=== PATIENT | male | born 1945 | race Caucasian/White ===

== ENCOUNTER 2018-03-24 08:57 | Observation (INO) ==
--- NOTE | 2018-03-24 09:38 | Emergency Department Note ---
Disposition Clinical Impression: Dyspnea on exertion, Generalized weakness, Myalgia, Sore throat Disposition: Admitted As Inpatient Condition: Good Time of Disposition: 14:35 General Adult HPI - General Chief complaint: ED Shortness of Breath/Dyspnea Stated complaint: "weak,dizzy" Time Seen by Provider: 03/24/18 09:15 Source: patient Limitations: no limitations Nursing Notes Reviewed: Yes Vital Signs Reviewed: Yes - History of Present Illness HPI Narrative: 72 year old otherwise healthy male woke up Thursday feeling achey and tired and then woke up this morning feeling much worse so decided to be checked out. He states that he has a headache between his eyes, some subjective fevers, chills, a midline sore throat with some difficulty swallowing, some shortness of breath with exertion, muscle aches that feel flu-like in nature, some nausea without vomiting or abdominal pain, and generally feels tired. He did wipe a tick off him that had not embedded itself a few days ago, but does not think the tick bit him and cannot remember removing any other ticks or seeing evidence of any other bites. He completed a course of doxycycline on Thursday which he had been taking for previously diagnosed epididymitis. Active medical problems include a current ileostoy placed in 1968 for ulcerative colitis and prostate cancer which is being watched but not treated. 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 Onset (ago): day(s) Location: head, neck, upper extremity, lower extremity Radiation: non-radiation Pain Severity: moderate Pain Scale: 4 Quality: aching Consistency: constant Improves with: immobilization Worsens with: movement Associated symptoms: Reports: shortness of breath Treatments Prior to Arrival: none - Related Data Home Medications Medication Instructions Recorded Confirmed Ranitidine HCl [Acid Webbing Weaver] 150 mg PO BID 03/24/18 03/24/18 Allergies Allergy/AdvReac Type Severity Reaction Status Date / Time No Known Allergies Allergy Verified 03/24/18 13:10 Constitutional: Reports: fever, chills, weakness Eyes: Denies: eye pain, eye discharge, vision change ENT ED: Reports: throat pain. Denies: congestion Cardiovascular: Reports: dyspnea on exertion. Denies: chest pain Respiratory: Reports: cough Gastrointestinal: Reports: nausea. Denies: vomiting Genitourinary: Denies: urgency, dysuria Musculoskeletal: Reports: myalgia Integumentary: Denies: rash, lesions Neurological: Reports: headache, weakness Psychiatric: Denies: anxiety, depression, suicidal thoughts, homicidal thoughts , auditory hallucinations, visual hallucinations Past Medical History - Past Medical History Medical history: Reports: cancer, other Psychiatric history: Reports: no psych history - Social History Smoking Status: Never smoker Smokeless Tobacco Status: No Alcohol use: Reports: none Drug use: Reports: none Physical Exam - General Limitations: no limitations - Head Head exam: atraumatic, normocephalic - Eye Eye exam: Present: normal appearance - ENT ENT exam: mucous membranes moist (mild erythema and evidence of post nasal drip) - Neck Neck exam: Present: normal inspection. Absent: lymphadenopathy - Chest Chest inspection: Present: normal inspection, symmetric chest wall rise. Absent : tenderness, rash - Respiratory Respiratory exam: Present: other (mild inspiratory crackles in the bases bilaterally) - Cardiovascular Cardiovascular exam: Present: regular rate, normal rhythm - Abdominal Exam Abdominal exam: Present: soft, Non-Tender - Extremities Exam Extremities exam: Present: normal inspection - Expanded Upper Extremity Exam Vascular exam: Normal: radial pulse (2+ bilaterally) - Neurological Exam Neurological exam: Present: alert, oriented X3 - Expanded Neurological Exam Motor strength - LUE: 5/5 Motor strength - RUE: 5/5 Motor strength - LLE: 5/5 Motor strength - RLE: 5/5 - Psychiatric Psychiatric exam: Present: normal affect, normal mood - Skin Skin exam: Present: warm, dry, intact Course - Reevaluation(s) Reevaluation #1: Spoke with patient and told him we plan to do a cardiac workup. He agrees with the plan and does not want anything for pain or nausea at this time. Time: 10:14 Reevaluation #2: Spoke with the patient and told him that in light of his negative workup in the department, we wanted to admit him for further studies and workup to determine the cause of his symptoms. Patient was in agreement with the plan and I addressed all of his concerns with an opportunity for further questions. Time: 12:00 - Consultations Consultation #1: Spoke with hospitalist Dr. Chapa who agreed to admit the patient to medicine. 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 2V CXR failed to show any pneumonia or atelectasis, lab work failed to show elevated troponin or disordered electrolytes, and while EKG showed a sinus arrythmia, it did not show any ST elevation or depression. Additionally, a CK ordered for myalgia was normal. Considering the previously healthy history of the patient, the findings and normal workup in the department is concerning for an underlying cardiac abnormality that would require a more extensive workup as an inpatient. The patient will be admitted to the hospitalist for further studies. - Differential Diagnosis dyspnea on exertion - Medical Records Medical records reviewed: Yes I reviewed the patient's medical records. - Lab Data Lab results reviewed: Yes I reviewed the patient's lab results. Result diagrams: 03/24/18 10:31 03/24/18 10:31 Lab Results 03/24/18 03/24/18 03/24/18 Range/Units 10:31 10:31 10:31 WBC 9.2 (4.3-11.1) K/mcL RBC 4.77 (4.19-5.50) M/mcL Hgb 14.8 (12.9-16.9) g/dL Hct 42.4 (37.5-50.1) % MCV 88.9 (83.0-100.0) fL MCH 31.0 (28.0-33.3) pg MCHC 34.9 (31.6-35.5) g/dL RDW 12.9 (11.5-14.5) % Plt Count 219 (140-400) K/mcL MPV 10.2 (9.4-12.4) fL Immature Gran % 0.5 (0-4) % Seg Neutrophils % 81.5 % Lymphocytes % 7.1 % Monocytes % 9.4 % Eosinophils % 1.1 % Basophils % 0.4 % Neutrophils # 7.5 (1.6-8.9) K/mcL Lymphocytes # 0.7 (0.6-4.6) K/mcL Monocytes # 0.9 (0.0-1.3) K/mcL Eosinophils # 0.1 (0.0-0.6) K/mcL Basophils # 0.0 (0.0-0.2) K/mcL PT 12.3 H (9.4-12.1) Seconds INR 1.1 APTT 29.3 (26.0-36.0) Seconds Sodium 135 L (136-145) mEq/L Potassium 4.5 (3.5-5.1) mEq/L Chloride 104 (98-107) mEq/L Carbon Dioxide 25 (23-29) mEq/L BUN 11 (8-23) mg/dL Creatinine 1.04 (0.70-1.30) mg/dL Est GFR ( Amer) > 60 (> 60) Est GFR (Non-Af Amer) > 60 (> 60) BUN/Creatinine Ratio 11 (6-26) Glucose 114 H (70-105) mg/dL Calculated Osmolality 280 (280-300) Calcium 9.5 (8.6-10.3) mg/dL Total Bilirubin 0.7 (0.3-1.0) mg/dL Direct Bilirubin 0.2 (0.0-0.2) mg/dL Indirect Bilirubin 0.5 (0.0-1.2) mg/dL AST 23 (13-39) Units/L ALT 25 (7-52) Units/L Alkaline Phosphatase 119 H (34-104) Units/L Creatine Kinase 52 (30-223) Units/L Troponin I < 0.03 (< 0.04) ng/mL Serum Total Protein 6.7 (6.4-8.9) g/dL Albumin 4.2 (3.5-5.7) g/dL Globulin 2.5 (2.4-3.5) g/dL Albumin/Globulin Ratio 1.7 (1.1-2.2) Lipase 45 (11-82) Units/L Urine Color (Yellow) Urine Clarity (Clear) Urine pH (5.0-8.0) pH Units Ur Specific [place] (1.010-1.025) Urine Protein (Neg-Trace) mg/dL Urine Glucose (UA) (Normal) mg/dL Urine Ketones (Negative) mg/dL Urine Blood (Negative) Urine Nitrite (Negative) Urine Bilirubin (Negative) Urine Urobilinogen (Normal) mg/dL Ur Leukocyte Esterase (Negative) Urine Microscopic RBC (0-3) per hpf Urine Microscopic WBC (0-3) per hpf Ur Squamous Epith Cells (None-Few) per lpf Urine Bacteria (None-Few) per hpf Hyaline Casts (None-Few) per lpf Ur Culture Indicated? (NO) 03/24/18 Range/Units 12:30 WBC (4.3-11.1) K/mcL RBC (4.19-5.50) M/mcL Hgb (12.9-16.9) g/dL Hct (37.5-50.1) % MCV (83.0-100.0) fL MCH (28.0-33.3) pg MCHC (31.6-35.5) g/dL RDW (11.5-14.5) % Plt Count (140-400) K/mcL MPV (9.4-12.4) fL Immature Gran % (0-4) % Seg Neutrophils % % Lymphocytes % % Monocytes % % Eosinophils % % Basophils % % Neutrophils # (1.6-8.9) K/mcL Lymphocytes # (0.6-4.6) K/mcL Monocytes # (0.0-1.3) K/mcL Eosinophils # (0.0-0.6) K/mcL Basophils # (0.0-0.2) K/mcL PT (9.4-12.1) Seconds INR APTT (26.0-36.0) Seconds Sodium (136-145) mEq/L Potassium (3.5-5.1) mEq/L Chloride (98-107) mEq/L Carbon Dioxide (23-29) mEq/L BUN (8-23) mg/dL Creatinine (0.70-1.30) mg/dL Est GFR ( Amer) (> 60) Est GFR (Non-Af Amer) (> 60) BUN/Creatinine Ratio (6-26) Glucose (70-105) mg/dL Calculated Osmolality (280-300) Calcium (8.6-10.3) mg/dL Total Bilirubin (0.3-1.0) mg/dL Direct Bilirubin (0.0-0.2) mg/dL Indirect Bilirubin (0.0-1.2) mg/dL AST (13-39) Units/L ALT (7-52) Units/L Alkaline Phosphatase (34-104) Units/L Creatine Kinase (30-223) Units/L Troponin I (< 0.04) ng/mL Serum Total Protein (6.4-8.9) g/dL Albumin (3.5-5.7) g/dL Globulin (2.4-3.5) g/dL Albumin/Globulin Ratio (1.1-2.2) Lipase (11-82) Units/L Urine Color Yellow (Yellow) Urine Clarity Clear (Clear) Urine pH 6.0 (5.0-8.0) pH Units Ur Specific [place] 1.021 (1.010-1.025) Urine Protein 30 H (Neg-Trace) mg/dL Urine Glucose (UA) Normal (Normal) mg/dL Urine Ketones Negative (Negative) mg/dL Urine Blood Negative (Negative) Urine Nitrite Negative (Negative) Urine Bilirubin Negative (Negative) Urine Urobilinogen Normal (Normal) mg/dL Ur Leukocyte Esterase Negative (Negative) Urine Microscopic RBC 3-5 H (0-3) per hpf Urine Microscopic WBC 3-5 H (0-3) per hpf Ur Squamous Epith Cells Many H (None-Few) per lpf Urine Bacteria None Seen (None-Few) per hpf Hyaline Casts None Seen (None-Few) per lpf Ur Culture Indicated? NO (NO) - Radiology Data Radiology results reviewed: Yes I reviewed the patient's radiology results. Chest X-Ray 03/24/18 10:04 IMPRESSION: No acute cardiopulmonary process. D/ / 03/24/2018 10:33:53 Paulette So MD / john Interpreting Provider: Paulette So MD - EKG Data EKG #1 EKG attestation: Yes I reviewed and interpreted this EKG. EKG results narrative: Underlying sinus rhythm with sinus arrythmia. Heart rate 85, p waves present with all QRS complexes. No ST elevation or depression. Attestation Statement - Attestation Attestation: I examined this patient and my medical decision-making was reviewed with the Resident Physician, Dr. Lizama. I agree with the documented findings, disposition and treatment plan as described except to the extent set forth below. Patient is a pleasant 72-year-old white male with a remote history of prostate CA who presents to the emergency department today with complaints of a 24-hour history of gradually worsening generalized weakness, diffuse myalgias, subjective fevers and chills, mild sore throat and exertional dyspnea. Patient denies any cough, no sinus pain or pressure, no headaches, no visual changes or photophobia. 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 Patient states be attempts a few steps he becomes very dyspneic but denies any chest pain or pressure sensation. Patient states by today he felt unsteady with even standing and bearing weight, and felt lightheaded and near syncopal although denies any syncopal episodes at home. No history of falls or trauma. I agree with patient's physical exam findings as documented. Vital signs are stable on arrival patient's in no acute distress, patient has a clear voice and managing secretions appropriately. Patient's EKG shows a normal sinus rhythm with occasional sinus arrhythmia no acute ST or T-wave changes are appreciated. Patient's chest x-ray is within normal limits. Patient's lab evaluation is within normal limits. Patient's findings concerning for exertional dyspnea to rule out ACS. Initial enzymes are negative. There are no acute EKG findings. Also symptoms sound concerning for viral illness with myalgias, chest x-ray is clear, urinalysis is negative for infection. At this time patient has remained hemodynamically stable and in no acute distress throughout his ED course rapid strep is negative. Patient will be admitted for further evaluation of above concerns case discussed with hospitalist who accepted patient for further evaluation.
[2018-03-24] MEDS ORDERED: Aspirin 81 MG TAB.CHEW PO ONE (09:55)
[2018-03-24 11:02] LABS: Basophils % 0.4 %; Eosinophils # 0.1 K/mcL (0.0-0.6); Eosinophils % 1.1 %; Hematocrit 42.4 % (37.5-50.1); Hemoglobin 14.8 g/dL (12.9-16.9); Immature Granulocytes % 0.5 % (0-4); Lymphocytes # 0.7 K/mcL (0.6-4.6); Lymphocytes % 7.1 %; Mean Corpuscular HGB Conc 34.9 g/dL (31.6-35.5); Mean Corpuscular Volume 88.9 fL (83.0-100.0); Mean Platelet Volume 10.2 fL (9.4-12.4); Monocytes # 0.9 K/mcL (0.0-1.3); Monocytes % 9.4 %; Neutrophils # 7.5 K/mcL (1.6-8.9); Platelet Count 219 K/mcL (140-400); Red Blood Count 4.77 M/mcL (4.19-5.50); Red Cell Distribution Width 12.9 % (11.5-14.5); Segmented Neutrophils % 81.5 %
[2018-03-24 11:14] LABS: Alanine Aminotransferase 25 Units/L (7-52); Albumin 4.2 g/dL (3.5-5.7); Albumin/Globulin Ratio 1.7 (1.1-2.2); Alkaline Phosphatase 119 Units/L (34-104); Aspartate Amino Transferase 23 Units/L (13-39); BUN/Creatinine Ratio 11 (6-26); Bilirubin,Direct 0.2 mg/dL (0.0-0.2); Bilirubin,Indirect 0.5 mg/dL (0.0-1.2); Bilirubin,Total 0.7 mg/dL (0.3-1.0); Blood Urea Nitrogen 11 mg/dL (8-23); Calcium 9.5 mg/dL (8.6-10.3); Carbon Dioxide 25 mEq/L (23-29); Chloride 104 mEq/L (98-107); Creatine Kinase 52 Units/L (30-223); Globulin 2.5 g/dL (2.4-3.5); Glucose 114 mg/dL (70-105); Lipase 45 Units/L (11-82); Osmolality,Calculated 280 (280-300); Potassium 4.5 mEq/L (3.5-5.1); Sodium 135 mEq/L (136-145); Total Protein 6.7 g/dL (6.4-8.9); Troponin I < 0.03 ng/mL (< 0.04); eGFR For African Americans > 60 (> 60); eGFR For Non-African Americans > 60 (> 60)
[2018-03-24 11:29] LABS: INR 1.1; Prothrombin Time 12.3 Seconds (9.4-12.1)
[2018-03-24 11:32] LABS: Activated Partial Thrombo Time 29.3 Seconds (26.0-36.0)
[2018-03-24 12:44] LABS: Bilirubin,Urine Negative (Negative); Blood,Urine Negative (Negative); Clarity,Urine Clear (Clear); Color,Urine Yellow (Yellow); Glucose,Urine (UA) Normal (Normal); Ketones,Urine Negative (Negative); Leukocyte Esterase,Urine Negative (Negative); Nitrite,Urine Negative (Negative); Protein,Urine 30 mg/dL (Neg-Trace); Specific Gravity,Urine 1.021 (1.010-1.025); Urobilinogen,Urine Normal (Normal)
[2018-03-24 12:46] LABS: Bacteria,Urine None Seen per hpf (None-Few); Hyaline Casts,Urine None Seen per lpf (None-Few); Squamous Epithelial Cell,Urine Many per lpf (None-Few)
[2018-03-24] MEDS ORDERED: Naloxone 0.4 MG/ML INJ IVP PRN (16:18)
--- NOTE | 2018-03-24 16:18 | Internal Med History&Physical ---
Date of Encounter: 03/24/18 Time of Encounter: 16:17 Internal Medicine - H&P: HPI Chief complaint: flulike symptoms History of present illness: 72 year old otherwise healthy male was past medical history cough prostate cancer and a remote history of ulcerative colitis in 1968 who presented to the ER with subjective fever chills and sore throat for some difficulty swallowing and dyspnea on exertion as very as flulike symptoms, he also reports being nauseated with no vomiting or abdominal pain. 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 The patient has history of epididymitis, that he has been treated for with doxycycline and he just completed that course of antibiotic on Thursday. the patient reported vague cardiac history including a known finding on EKG that was evaluated by rotary filter operator at [facility]. his workup in the ER was negative however the ER staff was concerned that his dyspnea and exertion likely due to cardiac component and requested the patient will be admitted for further evaluation and management. Past Med Surg Social Fam HX - Past Medical History Medical history: cancer, other Additional medical history: Prostate cancer Psychiatric history: no psych history - Past Surgical History Additional surgical history: Ileostomy - Social History Smoking Status: Never smoker Smokeless Tobacco Status: No Alcohol use: none Drug use: none Internal Medicine - H&P: Meds Ranitidine HCl [Acid Carrier Washer] 150 mg PO BID 03/24/18 [History] 3 Allergy/AdvReac Type Severity Reaction Status Date / Time No Known Allergies Allergy Verified 03/24/18 13:10 All Systems PM: A 10-system review of systems was performed and is negative for pertinent findings except as documented above in the HPI. - Constitutional Constitutional: chills, fatigue, fever(s), no night sweats - Cardiovascular Cardiovascular ROS IM: dyspnea on exertion, no chest pain, no diaphoresis, no dyspnea, no lightheadedness, no palpitations, no syncope - Respiratory Respiratory: dyspnea, no cough, no wheezing, no excessive phlegm production - Gastrointestinal Gastrointestinal: no abdominal pain, no diarrhea, no hematemesis, no hematochezia, no melena, no nausea, no vomiting - Neurological Neurological ROS: no confusion, no convulsions, no focal weakness, no numbness, no tingling, no tremor(s) - Constitutional Vitals: Temp Pulse Resp BP Pulse Ox 98.0 F 67 16 148/82 97 03/24/18 15:09 03/24/18 15:09 03/24/18 15:09 03/24/18 15:09 03/24/18 15:09 General appearance: Present: A&O X 3 - Neck Neck exam general surgery: Present: supple, trachea midline. Absent: lymphadenopathy - Respiratory Respiratory exam: Present: CTAB. Absent: accessory muscle use, rales, rhonchi, wheezes - Cardiovascular Cardiovascular exam: Present: RRR, +S1, +S2. Absent: diastolic murmur, gallop, rubs, systolic murmur - GI/Abdominal GI/Abdominal exam: Present: normal bowel sounds, soft, no peritoneal signs. Absent: distended, tenderness Internal Med - H&P Results - Labs CBC & Chem 7: 03/25/18 04:57 03/24/18 10:31 - Assessment and plan (1) Dyspnea on exertion Current Visit: Yes Status: Acute Assessment and plan: A concern that this might be an equivalent of cardiac component, rule out coronary artery disease. - cardiac enzymes x 2 q 8 hr - EKG now and in AM - ASA - O2 by NC to keep SpO2 greater than 92% - UA - CBCD, BMP in AM - Fasting lipids - Tylenol 650 mg PO q 4-6 hr PRN headache - Heparin 5000 U SQ BID - 2D Echo (2) Generalized weakness Current Visit: Yes Status: Acute Assessment and plan: the patient is complaining of generalized weakness and fever like symptoms, might be secondary to viral illness, so for all workup is negative. (3) Epididymitis Current Visit: Yes Status: Acute Assessment and plan: the patient was treated with doxycycline and just completed this course of antibiotic on Thursday. He denies any further symptoms. (4) Hyponatremia Current Visit: Yes Status: Acute Assessment and plan: mild hypovolemic hyponatremia most likely secondary to decreased pO on her intake, her starting patient on IV hydration with isotonic fluid. (5) DVT prophylaxis Current Visit: Yes Status: Acute Assessment and plan: heparin 5000 BID - Time Spent With Patient Total time spent is greater than 50% in coordination of care (as documented) at patient's floor/unit and/or counseling patient:
[2018-03-24] MEDS ORDERED: *HR* OxyCODONE Immed Rel 5 MG TABLET PO PRN (16:23)
[2018-03-24] MEDS ORDERED: traMADol 50 MG TABLET PO PRN (16:23)
[2018-03-24] MEDS ORDERED: Acetaminophen 325 MG TABLET PO PRN (16:23)
[2018-03-25 06:04] LABS: Hematocrit 41.6 % (37.5-50.1); Mean Corpuscular HGB Conc 33.7 g/dL (31.6-35.5); Mean Corpuscular Hemoglobin 30.2 pg (28.0-33.3); Mean Corpuscular Volume 89.8 fL (83.0-100.0); Mean Platelet Volume 10.3 fL (9.4-12.4); Platelet Count 216 K/mcL (140-400); Red Blood Count 4.63 M/mcL (4.19-5.50); Red Cell Distribution Width 12.9 % (11.5-14.5)
[2018-03-25 06:09] LABS: INR 1.1; Prothrombin Time 12.5 Seconds (9.4-12.1)
[2018-03-25 06:11] LABS: Activated Partial Thrombo Time 33.2 Seconds (26.0-36.0)
[2018-03-25 06:31] LABS: Alanine Aminotransferase 26 Units/L (7-52); Albumin 3.7 g/dL (3.5-5.7); Albumin/Globulin Ratio 1.5 (1.1-2.2); Alkaline Phosphatase 109 Units/L (34-104); Aspartate Amino Transferase 23 Units/L (13-39); BUN/Creatinine Ratio 14 (6-26); Bilirubin,Total 0.6 mg/dL (0.3-1.0); Blood Urea Nitrogen 13 mg/dL (8-23); Calcium 9.1 mg/dL (8.6-10.3); Carbon Dioxide 26 mEq/L (23-29); Chloride 104 mEq/L (98-107); Chol/HDL Ratio 4.8 (0-4.9); Cholesterol 143 mg/dL (< 200); Globulin 2.5 g/dL (2.4-3.5); Glucose 118 mg/dL (70-105); HDL Cholesterol 30 mg/dL (40-59); LDL Cholesterol,Calculated 83 mg/dL (0-99); Magnesium 1.9 mg/dL (1.6-2.6); Osmolality,Calculated 283 (280-300); Phosphorous 3.4 mg/dL (2.7-4.5); Potassium 4.3 mEq/L (3.5-5.1); Sodium 136 mEq/L (136-145); Total Protein 6.2 g/dL (6.4-8.9); Triglycerides 151 mg/dL (< 150); eGFR For African Americans > 60 (> 60); eGFR For Non-African Americans > 60 (> 60)
[2018-03-25] MEDS ORDERED: Famotidine 20 MG TABLET PO SCH (07:30)
--- NOTE | 2018-03-25 08:16 | Electrocardiograph Report ---
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
--- NOTE | 2018-03-25 09:43 | Internal Med Progress Note ---
<Aayush Garcia S - Last Filed: 03/25/18 13:47> Date of Encounter: 03/25/18 Time of Encounter: 08:45 - Assessment and plan (1) Generalized weakness Current Visit: Yes Status: Acute Assessment and plan: Pt has complaints of proximal muscle weakness, specifically in the shoulders and hip girdle He states it is hard to lift arms over head or flex hips So far all workup is negative. GAS negative, CXR negative, troponins 0.3, CK 52 All electrolytes are within nomral limits Hemoglobin stable. Today it is 14. (2) Dyspnea on exertion Current Visit: Yes Status: Acute Assessment and plan: Ruled out cardiac origin -TG 151 Troponin 0.03 CK 52 CXR showed no acute cardiopulmonary process Electrolytes normal O2 sat today is 96 on RA ECHO pending Heparin SQ 5000U (3) DVT prophylaxis Current Visit: Yes Status: Acute Assessment and plan: heparin 5000 SQ (4) Epididymitis Current Visit: No Status: Resolved Assessment and plan: Resolved Finished doxycycline on thursday (5) Dysphagia Current Visit: Yes Status: Acute Assessment and plan: Pt may have pill induced esophagitis from doxycylcline Will hold pt until tomorrow, plan for discharge tomorrow, incase dysphagia progresses Put pt on PO omeprazole Qualifiers: Dysphagia type: esophageal phase Qualified Code(s): R13.10 - Dysphagia, unspecified - Time Spent With Patient Total time spent is greater than 50% in coordination of care (as documented) at patient's floor/unit and/or counseling patient: less than 15 minutes - Subjective Interval history: Pt is seen at bedside. He came to the hospital Thursday after experiencing fever, chills, sore throat, and difficulty swallowing /dysphagia for two days. He Has c/o dyspnea on exertion. He said he had flu like symptoms , nausea associated. He said it was like he had a lump in the back of his throat and had trouble swallowing both solids/liquids. He has a hx of prostate cancer, ulcerative colitis and has had colostomy bag for 50yrs, he also had epidydimitis recently and was on doxycycline. 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 He says the tic wasn't engorged and was attached for <36hrs -Doxycylcine may be causing pill induced esophgaitis . Will keep patient one more day to make sure he can eat He has c/o proximal muscle weakness, lifting arms overhead, lifting hips. There is weakness in the hip girdle area and shoulders. Fluids - no fluids currently Electrolytes - all are within normal limits Nutrition - pt is tolerating regular diet GI prophylaxis - PO omeprazole DVT prophylaxis - heparin SQ - Constitutional Vitals: Temp Pulse Resp BP Pulse Ox 98.2 F 83 16 125/68 96 03/25/18 07:28 03/25/18 07:28 03/25/18 07:28 03/25/18 07:28 03/25/18 07:28 General appearance: Present: A&O X 3 - Head Head exam: Present: atraumatic, normal inspection - Neck Neck exam general surgery: Present: supple - Respiratory Respiratory exam: Present: CTAB - Cardiovascular Cardiovascular exam: Present: RRR, +S1, +S2 - GI/Abdominal GI/Abdominal exam: Present: normal bowel sounds, no peritoneal signs. Absent: tenderness - Neurological Exam Neurological exam: Present: alert, CN II-XII intact, oriented X3, no focal deficits. Absent: strengths equal and symetr throughout, facial droop, speech deficit - Skin Skin exam: Present: intact Internal Medicine: Result - Labs CBC & Chem 7: 03/25/18 04:57 03/25/18 04:57 Labs: Short CBC 03/25/18 Range/Units 04:57 WBC 7.9 (4.3-11.1) K/mcL Hgb 14.0 (12.9-16.9) g/dL Hct 41.6 (37.5-50.1) % Plt Count 216 (140-400) K/mcL BMP 03/25/18 04:57 Sodium 136 Potassium 4.3 Chloride 104 Carbon Dioxide 26 BUN 13 Creatinine 0.94 Glucose 118 H Calcium 9.1 Cardiac Enzymes 03/24/18 03/24/18 03/25/18 Range/Units 17:06 22:51 04:57 Troponin I < 0.03 < 0.03 < 0.03 (< 0.04) ng/mL Liver Function 03/25/18 Range/Units 04:57 Total Bilirubin 0.6 (0.3-1.0) mg/dL AST 23 (13-39) Units/L ALT 26 (7-52) Units/L Alkaline Phosphatase 109 H (34-104) Units/L Albumin 3.7 (3.5-5.7) g/dL - ABG Interpretation ABG results: PT/INR, D-dimer PT 12.5 Seconds (9.4-12.1) H 03/25/18 04:57 Consult Discharge Plan - Plan Referrals: Jimi Mccray MD [Primary Care Provider] - <Emmanuel Sheffield - Last Filed: 03/25/18 18:18> Date of Encounter: 03/25/18 - Assessment and plan (1) Dyspnea on exertion Current Visit: Yes Status: Acute (2) Generalized weakness Current Visit: Yes Status: Acute (3) DVT prophylaxis Current Visit: Yes Status: Acute (4) Epididymitis Current Visit: No Status: Resolved (5) Dysphagia Current Visit: Yes Status: Acute Qualifiers: Dysphagia type: esophageal phase Qualified Code(s): R13.10 - Dysphagia, unspecified - Time Spent With Patient Total time spent is greater than 50% in coordination of care (as documented) at patient's floor/unit and/or counseling patient: - Constitutional Vitals: Temp Pulse Resp BP Pulse Ox 98.2 F 79 16 137/72 95 03/25/18 15:11 03/25/18 15:11 03/25/18 15:11 03/25/18 15:11 03/25/18 15:11 Internal Medicine: Result - Labs CBC & Chem 7: 03/25/18 04:57 03/25/18 04:57 Labs: Short CBC 03/25/18 Range/Units 04:57 WBC 7.9 (4.3-11.1) K/mcL Hgb 14.0 (12.9-16.9) g/dL Hct 41.6 (37.5-50.1) % Plt Count 216 (140-400) K/mcL BMP 03/25/18 04:57 Sodium 136 Potassium 4.3 Chloride 104 Carbon Dioxide 26 BUN 13 Creatinine 0.94 Glucose 118 H Calcium 9.1 Cardiac Enzymes 03/24/18 03/25/18 Range/Units 22:51 04:57 Troponin I < 0.03 < 0.03 (< 0.04) ng/mL Liver Function 03/25/18 Range/Units 04:57 Total Bilirubin 0.6 (0.3-1.0) mg/dL AST 23 (13-39) Units/L ALT 26 (7-52) Units/L Alkaline Phosphatase 109 H (34-104) Units/L Albumin 3.7 (3.5-5.7) g/dL - ABG Interpretation ABG results: PT/INR, D-dimer PT 12.5 Seconds (9.4-12.1) H 03/25/18 04:57 - Attending Attestation I saw and evaluated the patient at bedside. I have reviewed the progress note obtained and documented by the resident and personally participated in the newberry components. I have discussed the case and management of the patient's care. I agree with the findings and plan of care.The following comments revise or confirm relevant newberry components of their note Diffuse myofascial pain Dehydration and subclinical Rhabdomyolysis ACS ruled out will give IVF and observe closely
[2018-03-25] MEDS ORDERED: 0.9 % Sodium Chloride 1,000 ML IVC SCH (13:15)
[2018-03-25] MEDS: *HR* Heparin 5,000 UNIT/ML VIAL SQ SCH (19:11)
[2018-03-25] MEDS ORDERED: NON-FORMULARY MEDICATION 1 EACH EACH (Ranitidine Hcl [Acid Reducer] 150 MG) PO SCH (21:00)
[2018-03-26] MEDS: *HR* Heparin 5,000 UNIT/ML VIAL SQ SCH (05:49)
[2018-03-26 07:28] VITALS: BP 152/71
[2018-03-26] MEDS ORDERED: predniSONE 10 MG TABLET PO ONE (09:00)
--- NOTE | 2018-03-26 09:18 | Discharge Summary ---
<Aayush Garcia S - Last Filed: 03/26/18 09:15> - NOTES TO OUTPATIENT PROVIDER Notes to Outpatient Provider: Pt should follow up for refill of omeprazole with PCP. Also consider follow up with rheumatology as per PCP. ESR 29, CRP 27. Gave a one time dose of prednisone to see if patient gets better clinically. Thinking he may have PMR since he has complaints of hip girdle, proximal muscle weakness, and has trouble lifting arms over head. Date of Encounter: 03/26/18 Time of Encounter: 08:15 - Discharge Diagnosis (1) Generalized weakness Priority: Primary Status: Acute Assessment and Plan: Pt has complaints of proximal muscle weakness, specifically in the shoulders and hip girdle He states it is hard to lift arms over head or flex hips. Ordered a one time dose of prednisone 10mg to see if this helps and to possibly rule out PMR. ESR 29, CRP 27. 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 GAS negative, CXR negative, troponins 0.3, CK 52 All electrolytes are within nomral limits Hemoglobin stable. Today it is 14. Discharge today (2) Dyspnea on exertion Priority: Secondary Status: Resolved Assessment and Plan: Ruled out cardiac origin -TG 151 Troponin 0.03 CK 52 CXR showed no acute cardiopulmonary process Electrolytes normal O2 sat today is 96 on RA Heparin SQ 5000U (3) DVT prophylaxis Priority: Secondary Status: Acute Assessment and Plan: heparin 5000 SQ (4) Epididymitis Priority: Secondary Status: Resolved Assessment and Plan: Resolved Finished doxycycline on thursday (5) Dysphagia Priority: Secondary Status: Resolved Assessment and Plan: Pt may have pill induced esophagitis from doxycycline. He says today is has resolved. He is tolerating foods without trouble Put pt on PO omeprazole, will d/c on a 30 day supply. Follow up with PCP for refill. Qualifiers: Dysphagia type: esophageal phase Qualified Code(s): R13.10 - Dysphagia, unspecified Hospital course: Mr. Lopez is a 72 year old male Discharge discussed with: patient Time spent discussing smoking cessation with patient: 3 to 10 minutes - Time Spent with Patient Total time spent providing and/or coordinating discharge services: Less than 30 minutes - Discharge Medications Prescriptions: Omeprazole [PriLOSEC] 20 mg PO DAILY@0630 30 Days #30 capsule.dr predniSONE [PredniSONE] 40 mg PO DAILY #20 tablet Home Medications: Omeprazole [PriLOSEC] 20 mg PO DAILY@0630 30 Days #30 capsule. 03/26/18 [Rx] predniSONE [PredniSONE] 40 mg PO DAILY #20 tablet 03/26/18 [Rx] Allergies/Adverse Reactions: 3 Allergy/AdvReac Type Severity Reaction Status Date / Time No Known Allergies Allergy Verified 03/24/18 13:10 Date of admission: 03/24/18 14:27 Primary care physician: Jimi Mccray MD - Constitutional Vitals: Temp Pulse Resp BP Pulse Ox 98.0 F 66 16 152/71 96 03/26/18 07:25 03/26/18 07:25 03/26/18 07:25 03/26/18 07:25 03/26/18 07:25 General appearance: Present: A&O X 3 - Head Head exam: Present: normal inspection - Neck Neck exam general surgery: Present: supple - Respiratory Respiratory exam: Present: CTAB - Cardiovascular Cardiovascular exam: Present: RRR, +S1, +S2 - GI/Abdominal GI/Abdominal exam: Present: soft, no peritoneal signs. Absent: tenderness - Extremities Exam Extremities exam: Present: normal inspection - Neurological Exam Neurological exam: Present: CN II-XII intact, oriented X3, no focal deficits - Psychiatric Psychiatric exam: Present: normal mood - Skin Skin exam: Present: intact - Patient Status Disposition: Home, Self-Care Condition: Good Functional capacity at discharge: independent ambulation Overall status at discharge: patient is progressing back to baseline - Discharge Instructions Instructions: Prednisone (By mouth), Omeprazole (By mouth) Follow Up With: Jimi Mccray MD [Primary Care Provider] - 03/30/18 11:00 am - Diet and Activity Activity: increase activity as tolerated, resume usual activities as tolerated Diet: advance to your usual diet <Emmanuel Sheffield - Last Filed: 03/26/18 17:44> Date of Encounter: 03/26/18 - Discharge Diagnosis (1) Dyspnea on exertion Status: Resolved (2) Generalized weakness Status: Acute (3) DVT prophylaxis Status: Acute (4) Epididymitis Status: Resolved (5) Dysphagia Status: Resolved Qualifiers: Dysphagia type: esophageal phase Qualified Code(s): R13.10 - Dysphagia, unspecified Hospital course: Mr. Lopez is a 72 year old male - Time Spent with Patient Total time spent providing and/or coordinating discharge services: Date of admission: 03/24/18 14:27 Primary care physician: Jimi Mccray MD - Constitutional Vitals: Temp Pulse Resp BP Pulse Ox 98.0 F 66 16 152/71 96 03/26/18 07:25 03/26/18 07:25 03/26/18 07:25 03/26/18 07:25 03/26/18 07:25 - Attending Attestation I saw and evaluated the patient at bedside. I have reviewed the DC Summary note obtained and documented by the resident and personally participated in the newberry components. I have discussed the case and management of the patient's care. I agree with the findings and plan of care.The following comments revise or confirm relevant newberry components of their note. 72 yo HX of IBD was here with Diffuse myalgias cardiac workup negative IVF helped but had myalgias erika in proximal muscle groups on UE will do short course of steroids and f/u recommended with PCP or Rheum Rest as per note
== END 2018-03-26 11:32 | disposition home or self-care (01) ==
LOC: 3BNU 08:57 → EMEROO 08:57 → SUATTDRO 14:27 → 3BNU 14:51
PROVIDERS: ADMIT Internal Medicine; ATTEND Internal Medicine